=== PATIENT | male | born 1995 | race Caucasian/White ===

== ENCOUNTER 2016-12-07 20:04 | Emergency (ER) | payer OTHER ==
--- NOTE | 2016-12-07 21:46 | DIAGNOSTIC IMAGING REPORT ---
PROCEDURE: CT ABD/PELVIS WITH CONTRAST INDICATION: Nausea, vomiting, diarrhea. Elevated white blood count (20,100). TECHNIQUE: 125 ml of Isovue 300 were injected intravenously and axial images were obtained of the entire abdomen and pelvis with sagittal and coronal reformations. COMPARISON: None. FINDINGS: ABDOMEN: Gallbladder, liver, spleen, pancreas, kidneys, and aorta are normal. Probable small hiatal hernia. Bowel pattern is normal, including appendix (retrocecal location). PELVIS: Pelvic structures are normal. No evidence of free fluid. IMPRESSION: 1. Probable small hiatal hernia. 2. Normal appendix (retrocecal location). 3. Otherwise negative CT abdomen and pelvis. 4. Findings discussed with Dr. Lj Elizabeth. All CT scans at this facility use dose modulation, iterative reconstruction, and/or weight-based dosing when appropriate to reduce radiation dose to as low as reasonably achievable.
--- NOTE | 2016-12-07 23:17 | DIAGNOSTIC IMAGING REPORT ---
PROCEDURE: XR CHEST 2 VIEW INDICATION: CHEST PAIN TECHNIQUE: PA and lateral views. COMPARISON: None. FINDINGS: Lungs are clear, although hyperexpanded. Heart and mediastinum are normal. Thorax is normal. IMPRESSION: 1. Pulmonary hyperexpansion suggests asthma or COPD. 2. Otherwise negative chest.
--- NOTE | 2016-12-08 05:53 | ED ORDER SUMMARY ---
..... Patient: MICHAEL LOFTON OrderSheet [facility] VisitID: [id number] [address] [place] [address] 21y, M Registration Date/Time: 12/07/2016 ORDER SHEET Weight: 72.5 kg Allergies: No Known Drug Allergy GENERAL ORDERS: CBC w Diff Urgent (20:59 12/07/2016 EHassan R.N. verbal order read back to Joyce Rachel) (21:01 EHassan R.N.) CMP Urgent (20:59 12/07/2016 EHassan R.N. verbal order read back to Joyce Rachel) (21:01 EHassan R.N.) UA-Culture if indicated Urgent (20:59 12/07/2016 EHassan R.N. verbal order read back to Joyce Rachel) (Ack 21:10 Ck) (0:18 JQuivey R.N.) PT with INR Urgent (20:59 12/07/2016 EHassan R.N. verbal order read back to Joyce Rachel) (21:01 EHassan R.N.) Amylase Urgent (20:59 12/07/2016 EHassan R.N. verbal order read back to Joyce Rachel) (21:01 EHassan R.N.) Lipase Urgent (20:59 12/07/2016 EHassan R.N. verbal order read back to Joyce Rachel) (21:01 EHassan R.N.) NPO (20:59 12/07/2016 EHassan R.N. verbal order read back to Joyce Rachel) (21:01 EHassan R.N.) Urine Drug Screen Urgent (21:13 12/07/2016 Monet RODRIGUEZ) (Ack 21:54 Ck) (0:18 JQuivey R.N.) CT Abd/Pel w Cont (No) (pending) Urgent (21:14 12/07/2016 Monet RODRIGUEZ) (21:38 EHassan R.N.) PCT (Procalcitonin) Urgent (22:00 12/07/2016 Monet RODRIGUEZ) (Ack 22:11 Ck) (22:15 EHassan R.N.) CRP Urgent (22:00 12/07/2016 Monet RODRIGUEZ) (Ack 22:11 Ck) (22:15 EHassan R.N.) Chest 2V Urgent (22:12 12/07/2016 Monet RODRIGUEZ) (22:29 MCampbell) EKG - ER Stat (22:12 12/07/2016 Monet RODRIGUEZ) (22:21 EHassan R.N.) MEDICATION ORDERS: GI Cocktail WHITE PO 50 mL (NOW) (22:45 12/07/2016 Monet RODRIGUEZ) (Ack 23:05 JQuivey R.N.) (23:08 JQuivey R.N.) Carafate PO 20 ml (NOW) (00:41 12/08/2016 Monet RODRIGUEZ) (Ack 1:20 RMarsden R.N.) (1:46 RMarsden R.N.) IV FLUIDS: IV NS with Normal Saline 1 Liter: initial bolus none -, then 1000 mL/hr for X1 (NOW) (20:58 12/07/2016 Merrill R.N. verbal order read back to Joyce Rachel) (21:02 Merrill R.N.) Morphine IV 4 mg (HIGH ALERT MEDICATION, NOW) (20:58 12/07/2016 Merrill R.N. verbal order read back to Joyce Rachel) (21:02 Merrill R.N.) Zofran IV 4 mg (NOW) (20:58 12/07/2016 Merrill R.N. verbal order read back to Joyce Rachel) (21:02 Merrill R.N.) IV Saline Lock (20:59 12/07/2016 Merrill R.N. verbal order read back to Joyce Rachel) (21:01 Merrill R.N.) Dilaudid IV 1 mg (NOW) (21:14 12/07/2016 Monet RODRIGUEZ) (21:19 Merrill R.N.) Toradol IV 30 mg (NOW) (22:04 12/07/2016 Monet RODRIGUEZ) (22:20 EHassacarmen R.N.) Ativan IV 1 mg (NOW) (22:04 12/07/2016 Monet RODRIGUEZ) (22:21 FANNYassacarmen R.N.) Haldol IV 2 mg (NOW) (00:41 12/08/2016 Monet RODRIGUEZ) (Ack 1:20 RMarsden R.N.) (1:41 RMarsden R.N.) Ativan IV 1 mg (NOW) (00:41 12/08/2016 Monet RODRIGUEZ) (Ack 1:20 RMarsden R.N.) (1:43 RMarsden R.N.) Reglan IV 10 mg (NOW) (00:41 12/08/2016 Monet RODRIGUEZ) (Ack 1:20 RMarsden R.N.) (1:51 RMarsden R.N.) Protonix IVP 80mg 80 mg (Mix in NS 20ml over 4min) (00:42 12/08/2016 Monet RODRIGUEZ) (Ack 1:20 RMarsden R.N.) (1:59 RMarsden R.N.) ORDER SHEET NOTES: [Electronically signed by Jade Ahumada R.N. (06:38 12/08/2016)] [Electronically signed by Lj Elizabeth MD (12:51 12/09/2016)] [Electronically locked/signed by Jade Ahumada R.N. (06:38 12/08/2016)]
--- NOTE | 2016-12-08 05:53 | ED CLINICAL REPORT ---
Clinical Report - Physicians/Mid Levels [facility] [address] [place] [address] 12/07/2016 20:06 Patient: MICHAEL LOFTON Time Seen: 21:08 Dec 07 2016. Arrived- By private vehicle. Historian- patient. CPT: ER phys charges level 4 (#[id number]). HISTORY OF PRESENT ILLNESS Chief Complaint: ABDOMINAL PAIN and VOMITING, DIARRHEA and NAUSEA. At its maximum, severity described as severe. When seen in the E.D., severity described as severe. Modifying factors- worsened by movement and food. Not relieved by anything. (( Pt states being diagnosed with hiatal hernia 2 years ago and has not seen or addressed the problem, has gone to walk in clinics who have placed him on Nexium. This last abdominal pain episode initiated last night, pt has vomited all day light brown clear liquid, denies seeing blood in vomit. Pt denies having fevers, chills, cough. Pt is here due to "severe pain"). Onset. (2 years). ( Pt states). He has had nausea, vomiting, diarrhea and abdominal pain. No constipation or fever. Last oral intake by patient was yesterday.). Is still present. It is described as "pain" and it is described as located in the epigastric area. The patient has had nausea, loss of appetite, vomiting and diarrhea. No recent travel. Similar symptoms previously: Several times (for 2 years [employer]). Recent medical care: Not recently seen/assessed. REVIEW OF SYSTEMS No constipation, black stools, hematemesis, difficulty with urination or pain with urination. No urinary frequency, bloody stools, fever, sore throat or chest pain. No difficulty breathing, cough, joint pain, skin rash or chills. No back pain. Due to see ceramic engineering professor for this. All systems otherwise negative, except as recorded above. PAST HISTORY See nurses notes. Abdominal pain syndrome. SOCIAL HISTORY Heavy tobacco smoker (cigarette)- less than 1 pack per day. History of drug use: marijuana. ADDITIONAL NOTES The nursing notes have been reviewed. PHYSICAL EXAM Vital Signs: 12/07/2016 20:29 BP: 140/85. HR: 75. RR: 20. O2 saturation: 100%. Temp: 98.8 F. Pain level now: 05/03. Appearance: Alert. Appears to be in pain. Patient in moderate distress. (Will not sit still for exam. Histrionic appearing.). Eyes: Eyes normal inspection. ENT: Pharynx normal. Neck: Normal inspection. CVS: Normal heart rate and rhythm. Heart sounds normal. Pulses normal. Respiratory: No respiratory distress. Breath sounds normal. Chest nontender. Abdomen: Soft. Moderate tenderness in the epigastric area and periumbilical area. Bowel sounds normal. No mass. Back: Normal inspection. Skin: Skin warm. Normal skin color. No rash. Extremities: Extremities exhibit normal ROM. No lower extremity edema. Neuro: Oriented X 3. No motor deficit. No sensory deficit. LABS, X-RAYS, AND EKG EKG: Normal EKG. Abdominal CT: Normal liver and gallbladder. Appendix normal. No mass. No free fluid. No bony lesion. Minimal sign of hiatal hernia. Abdominal CT performed with IV contrast. The study was interpreted by the radiologist and discussed with the radiologist. Laboratory Tests: UA-Culture if indicated: (THAIS: 12/08/2016 00:18) ( MsgRcvd 12/08/2016 00:42) Final results Test Result Flag Units (Reference) URINE COLOR YELLOW URINE APPEARANCE CLEAR URINE GLUCOSE NEGATIVE (NEGATIVE) URINE BILIRUBIN NEGATIVE (NEGATIVE) URINE KETONE 1+ (NEGATIVE) URINE SPECIFIC GRAVITY 1.010 (1.010-1.030) URINE PH >= 9.0 H (5.0-8.0) URINE PROTEIN NEGATIVE (NEGATIVE) URINE UROBILINOGEN 0.2 EU/dL (0.2-1.0) URINE NITRITE NEGATIVE (NEGATIVE) URINE BLOOD NEGATIVE (NEGATIVE) URINE LEUK ESTERASE NEGATIVE (NEGATIVE) URINE RBC 0-1 rbc/hpf (0-1) URINE WBC 0-1 wbc/hpf (0-1) URINE EPITHELIAL CELLS 0-1 EPI/hpf (0-5) URINE BACTERIA NONE SEEN (NONE SEEN) URINE COMMENT CULT NOT INDICATED URINE CULTURES ARE SET-UP BASED ON THE FOLLOWING CRITERIA:POSITIVE NITRITEPOSITIVE LEUKOCYTE ESTERASEGREATER THAN 10 WHITE BLOOD CELLSMODERATE (2+) OR GREATER BACTERIA CBC w Diff: (THAIS: 12/07/2016 20:45) ( [facility] 12/07/2016 21:11) Final results Test Result Flag Units (Reference) WHITE BLOOD COUNT 22.1 H K/uL (4.5-11.5) RED BLOOD COUNT 5.33 M/uL (4.50-5.90) HEMOGLOBIN 16.4 gm/dL (13.5-17.5) HEMATOCRIT 49.2 % (41.0-53.0) MEAN CELL VOLUME 92 fL (80-100) MEAN CORPUSCULAR HGB 31 pg (26-34) MEAN CORPUSCULAR HGB CONC 33 g/dL (31-37) RED CELL DISTRIBUTION WIDTH 13.1 % (11.6-14.8) PLATELET COUNT 425 H K/uL (150-400) NEUTROPHIL % 88.1 H % (50-75) LYMPH % 7.5 L % (25-40) MONO % 4.3 % (3-14) EOSINOPHIL % 0 % (0-4) BASOPHIL % 0.1 % (0-2) PT with INR: (THAIS: 12/07/2016 20:45) ( [facility] 12/07/2016 21:15) Final results Test Result Flag Units (Reference) INR 0.9 (0.8-1.2) Low Intensity Therapy: INR 1.5-2.0 PT range 18.5-23.1Mod.Intensity Therapy: INR 2.0-3.0 PT range 23.1-31.5High Intensity Therapy: INR 2.5-3.5 PT range 27.4-35.5High Intensity Therapy 2: INR 3.0-4.0 PT range 31.5-39.3 [id number]: (THAIS: 12/07/2016 21:13) ( [facility] 12/08/2016 01:17) Final results Test Result Flag Units (Reference) URINE DRUG SCREEN POSITIVE,Unconfirmed DRUGS DETECTED: Opiates The urine drug screen is a qualitative screening test fordrug overdose and abuse. All screen results should beconsidered as presumptive.Drugs screened for are as follows:BenzodiazepinesCocaineAmphetamines/MetamphetaminesTHC (Tetrahydrocannabinol)OpiatesBarbituratesTCA (Tricyclic Antidepressants)MethadonePositive results are unconfirmed. For confirmation, notifythe lab for the specimen to be sent to the reference lab.All confirmations must be performed by a differentmethodology.The ingestion of natural herbal and plant productscontaining Ephedra/Ephedra metabolites can produce in urineone or more substances capable of cross reacting withamphetamine/methamphetamine immunoassays. This testprovides a preliminary result only. A more specificalternative chemical method must be used to obtain aconfirmed analytical result. [id number]: (THAIS: 12/07/2016 20:45) ( MsgRcvd 12/07/2016 23:14) Final results Test Result Flag Units (Reference) C-REACTIVE PROTEIN < 0.2 mg/dL (0.0-0.9) [id number]: (THAIS: 12/07/2016 20:45) ( MsgRcvd 12/07/2016 22:40) Final results Test Result Flag Units (Reference) PROCALCITONIN < 0.05 ng/mL (0-0.5) PCT Concentration: Interpretation : Risk/option for action PCT <=0.5 ng/mL : Systemic : Low risk forinfection(sepsis): progression to severeis not likely. : systemic infection.Local bacterial : CAUTION-PCT levelsinfection is : below 0.5 ng/mL do notpossible. : exclude an infection,because localizedinfections (withoutsystemic signs) may beassociated with suchlow levels. If PCT ismeasured very earlyafter a bacterialchallenge (usually <6hours), these valuesmay still be low. Inthis case PCT shouldbe re-assessed 6-24hours later. PCT >0.5 and : Systemic infection: Moderate risk for<= 2 ng/mL : (sepsis) is : progression to severepossible, but : systemic infection.other conditions : The patient should beare known to : closely monitoredelevate PCT. : both clinically andby re-assessing PCTwithin 6-24 hours. PCT > 2 ng/mL : Systemic infection: High risk for(sepsis) is likely: progression to severeunless other : systemic infection.causes are known. : PCT >= 10 ng/mL : Important systemic: High likelihood ofinflammatory : severe sepsis orresponse, almost : septic shock.exclusively due to:severe bacterial :sepsis or septic :shock. : CMP: (THAIS: 12/07/2016 20:45) ( MsgRcvd 12/07/2016 21:17) Final results Test Result Flag Units (Reference) GLUCOSE 144 H mg/dL (70-110) BUN 11 mg/dL (7-18) CREATININE 1.5 H mg/dL (0.6-1.3) Estimated GFR >60 mL/min Estimated GFR- >60 mL/min Note: Persistent reduction over 3 months in eGFR<60 mL/min/1.73 m2 defines CKD. Patients with eGFR values>=60 mL/min/1.73 m2 may also have CKD if evidence ofpersistent proteinuria. Additional information may be foundat www.kidney.org. SODIUM 140 mmol/L (136-145) POTASSIUM 3.8 mmol/L (3.5-5.1) CHLORIDE 103 mmol/L (98-107) CARBON DIOXIDE 21 mmol/L (21-32) CALCIUM 9.7 mg/dL (8.5-10.1) TOTAL PROTEIN 8.5 H g/dL (6.4-8.2) ALBUMIN 4.8 g/dL (3.3-5.0) BILIRUBIN, TOTAL 0.5 mg/dL (0.0-1.0) ALKALINE PHOSPHATASE 85 U/L (46-116) AST (SGOT) 18 U/L (15-37) ALT (SGPT) 31 U/L (12-78) LIPASE 121 U/L (73-393) AMYLASE 39 U/L (25-115) . PROGRESS AND PROCEDURES Course of Care: 00:42 12/08/16. Pt has recurrent intractable vomiting at this point. He notes the GI cocktail resolved his pain for 10 minutes but then it came back. Haldol 2 mg IV Ativan 1 mg Iv reglan 10 mg IV Carafate 20 ml Pt much better but now slightly somnolent and unable to get up and ambulate. Pt observed until able to ambulate. Pt may have cyclic vomiting syndrome. He has a GI appointment coming up. Haldol and ativan worked well to stop the syndrome. No abdominal pathology found on work-up. Patient/family counseled. Disposition: Discharged. Condition: stable and improved. CLINICAL IMPRESSION Acute esophagitis associated with gastro-esophageal reflux disease (GERD) (with esophageal spasm.). INSTRUCTIONS No strenuous activity. Take clear liquids only (frequent sips) until better. Advance diet as tolerated. Avoid alcohol and NSAIDS. Examples of NSAIDS include aspirin, ibuprofen (Advil) and naproxen (Aleve). Avoid spicy foods. Other diet: no caffeine. Warnings: Further evaluation is necessary. GENERAL WARNINGS: Return or contact your physician immediately if your condition worsens or changes unexpectedly, if not improving as expected, or if other problems arise. Your Current Medications: STOP TAKING THE FOLLOWING MEDICATIONS: NexIUM Oral. Prescription Medications: Zofran (orally disintegrating tablets) 4 mg: take 1 orally every 6 hours as needed for nausea. Dispense five (5). No refill. Carafate 1 gm tablets: take 1 orally four times daily (1 hour before meals and at bedtime). Dispense sixty (60). No refills. Substitution is permissible. Prilosec 40 mg capsules: take 1 capsule orally every day for 10 days. Dispense ten (10). No refill. Oxycodone/APAP 5 mg/325 mg: take 1-2 tablets orally every 6 hours as needed for pain. Dispense ten (10). No refill. Follow-up: Follow up with a ceramic engineering professor in one week as scheduled. Understanding of the discharge instructions verbalized by patient and parent. Follow-up with: [facility], , , [address], [facility], [id number] Follow up Tuesday in two days. Call for an appointment. (Electronically signed by Lj Elizabeth MD 12/09/2016 12:51)
--- NOTE | 2016-12-08 05:53 | ED CLINICAL REPORT ---
Clinical Report - Physicians/Mid Levels [facility] [address] [place] [address] 12/07/2016 20:06 Patient: MICHAEL LOFTON Time Seen: 21:08 Dec 07 2016. Arrived- By private vehicle. Historian- patient. CPT: ER phys charges level 4 (#[id number]). HISTORY OF PRESENT ILLNESS Chief Complaint: ABDOMINAL PAIN and VOMITING, DIARRHEA and NAUSEA. At its maximum, severity described as severe. When seen in the E.D., severity described as severe. Modifying factors- worsened by movement and food. Not relieved by anything. (( Pt states being diagnosed with hiatal hernia 2 years ago and has not seen or addressed the problem, has gone to walk in clinics who have placed him on Nexium. This last abdominal pain episode initiated last night, pt has vomited all day light brown clear liquid, denies seeing blood in vomit. Pt denies having fevers, chills, cough. Pt is here due to "severe pain"). Onset. (2 years). ( Pt states). He has had nausea, vomiting, diarrhea and abdominal pain. No constipation or fever. Last oral intake by patient was yesterday.). Is still present. It is described as "pain" and it is described as located in the epigastric area. The patient has had nausea, loss of appetite, vomiting and diarrhea. No recent travel. 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 Recent medical care: Not recently seen/assessed. REVIEW OF SYSTEMS No constipation, black stools, hematemesis, difficulty with urination or pain with urination. No urinary frequency, bloody stools, fever, sore throat or chest pain. No difficulty breathing, cough, joint pain, skin rash or chills. No back pain. Due to see senior systems developer for this. All systems otherwise negative, except as recorded above. PAST HISTORY See nurses notes. Abdominal pain syndrome. SOCIAL HISTORY Heavy tobacco smoker (cigarette)- less than 1 pack per day. History of drug use: marijuana. ADDITIONAL NOTES The nursing notes have been reviewed. PHYSICAL EXAM Vital Signs: 12/07/2016 20:29 BP: 140/85. HR: 75. RR: 20. O2 saturation: 100%. Temp: 98.8 F. Pain level now: 05/03. Appearance: Alert. Appears to be in pain. Patient in moderate distress. (Will not sit still for exam. Histrionic appearing.). Eyes: Eyes normal inspection. ENT: Pharynx normal. Neck: Normal inspection. CVS: Normal heart rate and rhythm. Heart sounds normal. Pulses normal. Respiratory: No respiratory distress. Breath sounds normal. Chest nontender. Abdomen: Soft. Moderate tenderness in the epigastric area and periumbilical area. Bowel sounds normal. No mass. Back: Normal inspection. Skin: Skin warm. Normal skin color. No rash. Extremities: Extremities exhibit normal ROM. No lower extremity edema. Neuro: Oriented X 3. No motor deficit. No sensory deficit. LABS, X-RAYS, AND EKG EKG: Normal EKG. Abdominal CT: Normal liver and gallbladder. Appendix normal. No mass. No free fluid. No bony lesion. Minimal sign of hiatal hernia. Abdominal CT performed with IV contrast. The study was interpreted by the radiologist and discussed with the radiologist. Laboratory Tests: UA-Culture if indicated: (THAIS: 12/08/2016 00:18) ( MsgRcvd 12/08/2016 00:42) Final results Test Result Flag Units (Reference) URINE COLOR YELLOW URINE APPEARANCE CLEAR URINE GLUCOSE NEGATIVE (NEGATIVE) URINE BILIRUBIN NEGATIVE (NEGATIVE) URINE KETONE 1+ (NEGATIVE) URINE SPECIFIC GRAVITY 1.010 (1.010-1.030) URINE PH >= 9.0 H (5.0-8.0) URINE PROTEIN NEGATIVE (NEGATIVE) URINE UROBILINOGEN 0.2 EU/dL (0.2-1.0) URINE NITRITE NEGATIVE (NEGATIVE) URINE BLOOD NEGATIVE (NEGATIVE) URINE LEUK ESTERASE NEGATIVE (NEGATIVE) URINE RBC 0-1 rbc/hpf (0-1) URINE WBC 0-1 wbc/hpf (0-1) URINE EPITHELIAL CELLS 0-1 EPI/hpf (0-5) URINE BACTERIA NONE SEEN (NONE SEEN) URINE COMMENT CULT NOT INDICATED URINE CULTURES ARE SET-UP BASED ON THE FOLLOWING CRITERIA:POSITIVE NITRITEPOSITIVE LEUKOCYTE ESTERASEGREATER THAN 10 WHITE BLOOD CELLSMODERATE (2+) OR GREATER BACTERIA CBC w Diff: (THAIS: 12/07/2016 20:45) ( [facility] 12/07/2016 21:11) Final results Test Result Flag Units (Reference) WHITE BLOOD COUNT 22.1 H K/uL (4.5-11.5) RED BLOOD COUNT 5.33 M/uL (4.50-5.90) HEMOGLOBIN 16.4 gm/dL (13.5-17.5) HEMATOCRIT 49.2 % (41.0-53.0) MEAN CELL VOLUME 92 fL (80-100) MEAN CORPUSCULAR HGB 31 pg (26-34) MEAN CORPUSCULAR HGB CONC 33 g/dL (31-37) RED CELL DISTRIBUTION WIDTH 13.1 % (11.6-14.8) PLATELET COUNT 425 H K/uL (150-400) NEUTROPHIL % 88.1 H % (50-75) LYMPH % 7.5 L % (25-40) MONO % 4.3 % (3-14) EOSINOPHIL % 0 % (0-4) BASOPHIL % 0.1 % (0-2) PT with INR: (THAIS: 12/07/2016 20:45) ( [facility] 12/07/2016 21:15) Final results Test Result Flag Units (Reference) INR 0.9 (0.8-1.2) Low Intensity Therapy: INR 1.5-2.0 PT range 18.5-23.1Mod.Intensity Therapy: INR 2.0-3.0 PT range 23.1-31.5High Intensity Therapy: INR 2.5-3.5 PT range 27.4-35.5High Intensity Therapy 2: INR 3.0-4.0 PT range 31.5-39.3 [id number]: (THAIS: 12/07/2016 21:13) ( [facility] 12/08/2016 01:17) Final results Test Result Flag Units (Reference) URINE DRUG SCREEN POSITIVE,Unconfirmed DRUGS DETECTED: Opiates The urine drug screen is a qualitative screening test fordrug overdose and abuse. All screen results should beconsidered as presumptive.Drugs screened for are as follows:BenzodiazepinesCocaineAmphetamines/MetamphetaminesTHC (Tetrahydrocannabinol)OpiatesBarbituratesTCA (Tricyclic Antidepressants)MethadonePositive results are unconfirmed. For confirmation, notifythe lab for the specimen to be sent to the reference lab.All confirmations must be performed by a differentmethodology.The ingestion of natural herbal and plant productscontaining Ephedra/Ephedra metabolites can produce in urineone or more substances capable of cross reacting withamphetamine/methamphetamine immunoassays. This testprovides a preliminary result only. A more specificalternative chemical method must be used to obtain aconfirmed analytical result. [id number]: (THAIS: 12/07/2016 20:45) ( MsgRcvd 12/07/2016 23:14) Final results Test Result Flag Units (Reference) C-REACTIVE PROTEIN < 0.2 mg/dL (0.0-0.9) [id number]: (THAIS: 12/07/2016 20:45) ( MsgRcvd 12/07/2016 22:40) Final results Test Result Flag Units (Reference) PROCALCITONIN < 0.05 ng/mL (0-0.5) PCT Concentration: Interpretation : Risk/option for action PCT <=0.5 ng/mL : Systemic : Low risk forinfection(sepsis): progression to severeis not likely. : systemic infection.Local bacterial : CAUTION-PCT levelsinfection is : below 0.5 ng/mL do notpossible. : exclude an infection,because localizedinfections (withoutsystemic signs) may beassociated with suchlow levels. If PCT ismeasured very earlyafter a bacterialchallenge (usually <6hours), these valuesmay still be low. Inthis case PCT shouldbe re-assessed 6-24hours later. PCT >0.5 and : Systemic infection: Moderate risk for<= 2 ng/mL : (sepsis) is : progression to severepossible, but : systemic infection.other conditions : The patient should beare known to : closely monitoredelevate PCT. : both clinically andby re-assessing PCTwithin 6-24 hours. PCT > 2 ng/mL : Systemic infection: High risk for(sepsis) is likely: progression to severeunless other : systemic infection.causes are known. : PCT >= 10 ng/mL : Important systemic: High likelihood ofinflammatory : severe sepsis orresponse, almost : septic shock.exclusively due to:severe bacterial :sepsis or septic :shock. : CMP: (THAIS: 12/07/2016 20:45) ( MsgRcvd 12/07/2016 21:17) Final results Test Result Flag Units (Reference) GLUCOSE 144 H mg/dL (70-110) BUN 11 mg/dL (7-18) CREATININE 1.5 H mg/dL (0.6-1.3) Estimated GFR >60 mL/min Estimated GFR- >60 mL/min Note: Persistent reduction over 3 months in eGFR<60 mL/min/1.73 m2 defines CKD. Patients with eGFR values>=60 mL/min/1.73 m2 may also have CKD if evidence ofpersistent proteinuria. Additional information may be foundat [email or web address].org. SODIUM 140 mmol/L (136-145) POTASSIUM 3.8 mmol/L (3.5-5.1) CHLORIDE 103 mmol/L (98-107) CARBON DIOXIDE 21 mmol/L (21-32) CALCIUM 9.7 mg/dL (8.5-10.1) TOTAL PROTEIN 8.5 H g/dL (6.4-8.2) ALBUMIN 4.8 g/dL (3.3-5.0) BILIRUBIN, TOTAL 0.5 mg/dL (0.0-1.0) ALKALINE PHOSPHATASE 85 U/L (46-116) AST (SGOT) 18 U/L (15-37) ALT (SGPT) 31 U/L (12-78) LIPASE 121 U/L (73-393) AMYLASE 39 U/L (25-115) . PROGRESS AND PROCEDURES Course of Care: 00:42 12/08/16. Pt has recurrent intractable vomiting at this point. He notes the GI cocktail resolved his pain for 10 minutes but then it came back. Haldol 2 mg IV Ativan 1 mg Iv reglan 10 mg IV Carafate 20 ml Pt much better but now slightly somnolent and unable to get up and ambulate. Pt observed until able to ambulate. Pt may have cyclic vomiting syndrome. He has a GI appointment coming up. Haldol and ativan worked well to stop the syndrome. No abdominal pathology found on work-up. Patient/family counseled. Disposition: Discharged. Condition: stable and improved. CLINICAL IMPRESSION Acute esophagitis associated with gastro-esophageal reflux disease (GERD) (with esophageal spasm.). INSTRUCTIONS No strenuous activity. Take clear liquids only (frequent sips) until better. Advance diet as tolerated. Avoid alcohol and NSAIDS. Examples of NSAIDS include aspirin, ibuprofen (Advil) and naproxen (Aleve). Avoid spicy foods. Other diet: no caffeine. Warnings: Further evaluation is necessary. GENERAL WARNINGS: Return or contact your physician immediately if your condition worsens or changes unexpectedly, if not improving as expected, or if other problems arise. Your Current Medications: STOP TAKING THE FOLLOWING MEDICATIONS: NexIUM Oral. Prescription Medications: Zofran (orally disintegrating tablets) 4 mg: take 1 orally every 6 hours as needed for nausea. Dispense five (5). No refill. Carafate 1 gm tablets: take 1 orally four times daily (1 hour before meals and at bedtime). Dispense sixty (60). No refills. Substitution is permissible. Prilosec 40 mg capsules: take 1 capsule orally every day for 10 days. Dispense ten (10). No refill. Oxycodone/APAP 5 mg/325 mg: take 1-2 tablets orally every 6 hours as needed for pain. Dispense ten (10). No refill. Follow-up: Follow up with a senior systems developer in one week as scheduled. Understanding of the discharge instructions verbalized by patient and parent. Follow-up with: [facility], , , [address], [facility] [place], [address] Follow up Tuesday in two days. Call for an appointment. (Electronically signed by Lj Elizabeth MD 12/09/2016 12:51)
--- NOTE | 2016-12-08 05:53 | ED NURSING NOTES ---
Clinical Report - Nurses [facility] [address] [place] [address] 12/07/2016 20:06 Patient: MICHAEL LOFTON TRIAGE Triage time 2034 PM. Acuity: LEVEL 3. Chief Complaint: ABDOMINAL PAIN, NAUSEA, VOMITING and DIARRHEA. Alert. No acute distress. SEPSIS SCREEN: Sepsis Screen. Negative (no infection suspected/documented). --20:53 Yael Baxter R.N. 20:29 12/07/16. BP: 140/85. HR: 75. RR: 20. O2 saturation: 100% on room air. Temp: 98.8 F (oral). Pain level now: 05/03. --20:53 Yael Baxter R.N. Weight: 72.5 kg. Height/Length: 66 inches. BMI: 25.8. --20:29 Yael Baxter R.N. Medications NexIUM Oral. --20:43 Yael Baxter R.N. Medication/allergy information source: the patient. --20:53 Yael Baxter R.N. Allergies No Known Drug Allergy. --22:04 Yael Baxter R.N. History Arrived by private vehicle. Historian: patient. Accompanied by family. ( Pt states being diagnosed with hiatal hernia 2 years ago and has not seen or addressed the problem, has gone to walk in clinics who have placed him on Nexium. This last abdominal pain episode initiated last night, pt has vomited all day light brown clear liquid, denies seeing blood in vomit. Pt denies having fevers, chills, cough. Pt is here due to "severe pain"). Onset. (2 years). ( Pt states). He has had nausea, vomiting, diarrhea and abdominal pain. No constipation or fever. Last oral intake by patient was yesterday. Treatment PRICING ASSOCIATE: Took Tylenol and ibuprofen. (nexium). PAST MEDICAL HX: Gastroesophageal reflux disease. Immunizations: up-to-date. SOCIAL HX: Heavy tobacco smoker- less than 1 pack per day. History of drug use: marijuana. Recently used drugs today. No alcohol use. No recent travel. No infectious disease exposure. No known contact with a sick individual. ABUSE ASSESSMENT: No report of abuse. SELF HARM ASSESSMENT: A self harm assessment was performed. The patient answered "no" to the question "Do you have thoughts of harming or killing yourself?" and "Have you recently had thoughts about harming or killing others?". FALL RISK ASSESSMENT: Fall risk assessment completed. No fall risk identified. NUTRITIONAL RISK ASSESSMENT: The nutritional risk assessment revealed no deficiencies. FUNCTIONAL ASSESSMENT: Functional assessment: no impairments noted. LEARNING NEEDS ASSESSMENT: The learning needs assessment revealed no barriers. SKIN INTEGRITY ASSESSMENT: Skin integrity risk assessment completed. No skin integrity risk identified. --20:53 Yael Baxter R.N. ADDITIONAL SURGERIES: no known surgeries. Interventions ID band on patient. --20:53 Yael Baxter R.N. PHYSICAL ASSESSMENT Ambulatory to room. GENERAL / NEURO / PSYCH: Alert. Oriented X 4. Appears in pain, anxious and in distress. HEENT: Mucous membranes are pink. RESPIRATORY: Respirations not labored. Breath sounds within normal limits. CVS: Capillary refill less than 2 seconds. GI / : The patient has had nausea. Rebound tenderness. Guarding present. Diminished bowel sounds in all quadrants. No abdominal distention or diarrhea. No blood in the stool. SKIN: Skin is warm and dry. --21:08 Yael Baxter R.N. NURSING PROGRESS NOTES 21:12/07/2016 Site #1 started via IV in the right antecubital space with an 20g angiocath. Blood drawn: rainbow set. Labeled in the presence of the patient and sent to the lab. --21: Yael Baxter R.N. 21:12/07/2016 Started bag #1 1000 mL IV Fluids IV NS (Saline); at 1000 mL/hr over 1 hour(s) via site #1 via IV pump. Allergies verified and confirmed 5 rights. IV patency established. IV site checked: no pain, redness, or swelling. IV flushed thoroughly pre- and post-medication administration. --21:02 Yael Baxter R.N. 21:12/07/2016 Morphine IVP 4 mg given over 1 minute(s) via site #1. Allergies verified, confirmed 5 rights and sedative warning given to the patient and patient's family. IV patency established. IV site checked: no pain, redness, or swelling. IV flushed thoroughly pre- and post-medication administration. IVP given by RN. --21:02 Yael Baxter R.N. 21:12/07/2016 Zofran (Ondansetron HCl) IVP 4 mg given over 2 minute(s) via site #1. Allergies verified and confirmed 5 rights. IV patency established. IV site checked: no pain, redness, or swelling. IV flushed thoroughly pre- and post-medication administration. IVP given by RN. --21:02 Yael Baxter R.N. The initial plan of care for this patient has been created This plan of care was discussed with the patient. Patient ID band checked for patient name and birthdate: patient confirmed. Blood samples drawn from the right antecubital space by nurse per protocol ; labeled in presence of the patient and sent to lab: rainbow set. Patient gowned. Warming measures: blanket applied. Reassurance given. Two patient identifiers checked. Call light placed in reach. Side rails up x 1. Bed placed in lowest position. --21:06 Yael Baxter R.N. ( Family at bedside an updated, pt told to be NPO, IV fluids given with meds as ordered. MD Treviño aware, will monitor). GI / : The patient reports nausea. The patient reports vomiting. The patient reports abdominal pain. Denies diarrhea. Abdomen soft. Abdominal tenderness. Bowel sounds within normal limits. No abdominal distention. --21:07 Yael Baxter R.N. :12/07/2016 Dilaudid (HYDROmorphone HCl PF) IVP 1 mg given over 30 second(s) via site #1. Allergies verified, confirmed 5 rights and sedative warning given to the patient and patient's family. IV patency established. IV site checked: no pain, redness, or swelling. IV flushed thoroughly pre- and post-medication administration. IVP given by RN. --: Yael Baxter R.N. Patient transported to [place]. (2121 PM). --: Baxter, Yael, R.N. Pulse oximeter and NIBP monitor placed on patient; monitor alarms on. --21:22 Yael Baxter R.N. 21:41 12/07/2016 IV Fluids IV NS Discontinued: bag #1 infused. Total amount infused: 1000 mL. --21:41 Mehdi Carlos R.N. Reassurance given. Reassessment after oxygen administered. He is resting quietly. GI / : The patient reports abdominal pain. Denies nausea or vomiting. Patient returned from CT. (2150 PM). Call light placed in reach. --21:59 Yael Baxter R.N. 21:56 12/07/16. BP: 140/76 (regular adult cuff) taken on the left arm, via an automated monitor, while lying. HR: 74. RR: 18. O2 saturation: 98% on room air. Temp: 98.8 F (oral). Pain level now: 9/10. --21:59 Yael Baxter R.N. 21:56 12/07/2016 Morphine IVP Response: no adverse reaction symptoms are the same. The patient feels the same. --22:21 Yael Baxter R.N. 22:12/07/2016 Zofran IVP Response: no adverse reaction pain is improving. Symptoms have improved the patient feels the same. --22:20 Yael Baxter R.N. 22:12/07/2016 Dilaudid IVP Response: no adverse reaction pain is improving. Symptoms are the same. The patient feels the same. --22:20 Yael Baxter R.N. 22:20 12/07/2016 Toradol IVP 30 mg given over 30 second(s) via site #1. Allergies verified and confirmed 5 rights. IV patency established. IV site checked: no pain, redness, or swelling. IV flushed thoroughly pre- and post-medication administration. IVP given by RN. --22:20 Yael Baxter R.N. 22:21 12/07/2016 Ativan (LORazepam) IVP 1 mg given over 30 second(s) via site #1. Allergies verified, confirmed 5 rights and sedative warning given to the patient and patient's family. IV patency established. IV site checked: no pain, redness, or swelling. IV flushed thoroughly pre- and post-medication administration. IVP given by RN. --22:21 Yael Baxter R.N. Patient transported to radiology. (2222 PM). --22:22 Yael Baxter R.N. Care transferred and report given (CALEB Hansen). --22:36 Yael Baxter R.N. EKG time: (2224 PM). EKG was ordered, performed by a tech and shown to the ED physician. --22:42 Romana Mena 23:06 12/07/2016 GI COCKTAIL WHITE (Simethicone) PO 50 mL given. Allergies verified and confirmed 5 rights. --23:08 Mehdi Carlos RJuan Jose 23:08 Patient reminded of the need for a urine sample - urinal placed on bedrail. --23:14 Mehdi Carlos R.N. Patient ID band checked for patient name and birthdate: patient confirmed. Clean catch urine collected with return of yellow-colored clear urine; sample sent to lab for urinalysis and drug screen. Specimen labeled in the presence of the patient. Patient and family informed about reason for wait and about plan of care. --00:20 Jade Ahumada R.N. 00:22 12/08/16. BP: 138/88. HR: 98. RR: 24. O2 saturation: 100%. Pain level now: 7/10. --00:23 Jade Ahumada R.N. 01:31 12/08/2016 Carafate (Sucralfate) PO Oral Suspension 2 gm given. Allergies verified and confirmed 5 rights. --01:46 Jade Ahumada R.N. 01:41 12/08/2016 HALDOL (Haloperidol Lactate) IVP 2 mg given over 3 minute(s) via site #1. Allergies verified, confirmed 5 rights and sedative warning given to the patient. IV patency established. IV site checked: no pain, redness, or swelling. IV flushed thoroughly pre- and post-medication administration. IVP given by RN. --01:41 Jade Ahumada R.N. 01:43 12/08/2016 Ativan (LORazepam) IVP 1 mg given over 2 minute(s) via site #1. Allergies verified, confirmed 5 rights and sedative warning given to the patient. IV patency established. IV site checked: no pain, redness, or swelling. IV flushed thoroughly pre- and post-medication administration. IVP given by RN. --01:43 Jade Ahumada R.N. 01:48 12/08/2016 Reglan (Metoclopramide HCl) IVP 10 mg given over 2 minute(s) via site #1. Allergies verified and confirmed 5 rights. IV patency established. IV site checked: no pain, redness, or swelling. IV flushed thoroughly pre- and post-medication administration. IVP given by RN. --01:51 Jade Ahumada R.N. 01:51 12/08/2016 Carafate PO Response: no adverse reaction. --02:06 Jade Ahumada R.N. 01:59 12/08/2016 PROTONIX (Pantoprazole Sodium) IVP 80 mg given over 7 minute(s) via site #1. Allergies verified and confirmed 5 rights. IV patency established. IV site checked: no pain, redness, or swelling. IV flushed thoroughly pre- and post-medication administration. IVP given by RN. --01:59 Jade Ahumada R.N. 02:05 12/08/2016 HALDOL IVP Response: no adverse reaction symptoms have improved the patient feels better. ED physician notified (Patient placed on 2L O2. O2 sat went up to 98% on 2L). 12/08/2016 02:00 BP: 137/77. HR: 68. RR: 20. O2 saturation: 90%. FLACC pain scale: 0/10. --02:06 Jade Ahumada R.NRebecca 02:06 12/08/2016 Ativan IVP Response: no adverse reaction symptoms have improved. ED physician notified (see response note from Ativan). 12/08/2016 02:00 BP: 137/77. HR: 68. RR: 20. O2 saturation: 90%. FLACC pain scale: 0/10. --02:06 Jade Ahumada R.N. Reassessment after oxygen administered and medication administered. He is calm and sleeping and has had no adverse reaction. --02:39 Jade Ahumada R.N. The patient is sleeping. --03:35 Jade Ahumada R.N. 02:30 12/08/2016 Reglan IVP Response: no adverse reaction. 12/08/2016 02:30 BP: 138/77. HR: 85. RR: 17. O2 saturation: 96%. FLACC pain scale: 0/10. --03:38 Jade Ahumada R.N. 02:30 12/08/2016 PROTONIX IVP Response: no adverse reaction. 12/08/2016 02:30 BP: 138/77. HR: 85. RR: 17. O2 saturation: 96%. FLACC pain scale: 0/10. --03:38 Jade Ahumada R.N. The patient is sleeping. ( Patient's mother provided with coffee). --04:32 Jade Ahumada R.N. 03:45 12/08/16. BP: 113/74. HR: 67. RR: 17. O2 saturation: 95%. FLACC pain scale: 0/10. --04:56 Jade Ahumada R.N. 04:15 12/08/16. BP: 105/69. HR: 75. RR: 17. O2 saturation: 94%. FLACC pain scale: 0/10. --04:57 Jade Ahumada R.N. The patient is sleeping. --05:40 Jade Ahumada R.N. ( Patient easily woken up. He is able to stand and move. Patient reports 7/10 pain. ED physician notified.). --05:50 Jade Ahumada R.N. DISPOSITION / DISCHARGE 06:09 12/08/16. No learning barriers present. Discharge instructions provided and reviewed with the patient and parent. Reviewed warnings. Reviewed medication(s). Treatments reviewed. Reviewed referrals. Reviewed diet. Activity restrictions reviewed. Patient and parent verbalized understanding. Written instructions provided in [place]. The patient was discharged home and accompanied by parent. He left the Emergency Department ambulatory and via private vehicle. Parent driving. --06:09 Jade Ahumada R.N. 06:08 12/08/16. BP: 103/57. HR: 85. RR: 18. O2 saturation: 95%. Temp: deferred. Pain level now: 01/31. --06:09 Jade Ahumada R.N. Locked/Released at 12/08/2016 6:38 by Jade Ahumada R.N.
--- NOTE | 2016-12-09 12:51 | ED DISCHARGE INSTRUCTIONS ---
Patient: MICHAEL LOFTON General Instructions [facility] VisitID: [id number] [address] [place] [address] 21y, M Registration Date/Time: 12/07/2016 Acute esophagitis associated with gastro-esophageal reflux disease (GERD) (with esophageal spasm.). INSTRUCTIONS No strenuous activity. Take clear liquids only (frequent sips) until better. Advance diet as tolerated. Avoid alcohol and NSAIDS. Examples of NSAIDS include aspirin, ibuprofen (Advil) and naproxen (Aleve). Avoid spicy foods. Other diet: no caffeine. Warnings: Further evaluation is necessary. GENERAL WARNINGS: Return or contact your physician immediately if your condition worsens or changes unexpectedly, if not improving as expected, or if other problems arise. Your Current Medications: STOP TAKING THE FOLLOWING MEDICATIONS: NexIUM Oral. Prescription Medications: Zofran (orally disintegrating tablets) 4 mg: take 1 orally every 6 hours as needed for nausea. Dispense five (5). No refill. Carafate 1 gm tablets: take 1 orally four times daily (1 hour before meals and at bedtime). Dispense sixty (60). No refills. Substitution is permissible. Prilosec 40 mg capsules: take 1 capsule orally every day for 10 days. Dispense ten (10). No refill. Oxycodone/APAP 5 mg/325 mg: take 1-2 tablets orally every 6 hours as needed for pain. Dispense ten (10). No refill. Follow-up: Follow up with a production control expert in one week as scheduled. Understanding of the discharge instructions verbalized by patient and parent. Follow-up with: [facility], , , [address], , [place], [id number] Follow up Tuesday in two days. Call for an appointment. ADDITIONAL INFORMATION GERD (Adult) The esophagus is a tube that carries food from the mouth to the stomach. A valve at the lower end of the esophagus prevents stomach acid from flowing upward. If this valve does not work properly, acid from the stomach enters the esophagus. If this occurs over and over, the acid will injure the lining of the esophagus. This condition is called GERD (gastroesophageal reflux disease) or acid reflux. When stomach acid flows upward into the esophagus, it causes burning, pressure or sharp pain in the upper abdomen or mid to lower chest. The pain can spread to the neck, back, or shoulder, similar to heart pain (angina). There may be belching, an acid taste in the back of the throat, chronic cough, or sore throat or hoarseness. GERD symptoms often occur during the day after a big meal, but it can also occur at night when lying down. Smoking,as well as drinking alcohol, increases the risk of GERD. GERD is a chronic condition. Once it begins, it is often lifelong. Treatment includes changes in eating habits and the use of acid gordon medications to decrease the amount of acid in the stomach. Symptoms often improve with treatment, but if treatment is stopped, the symptoms usually return after a few months. So most persons with GERD will need to continue treatment. Home Care: Take the prescribed acid gordon medication for the full course of treatment even if you begin to feel better sooner. This medication can take up to several days to fully control your symptoms. If you cant afford the prescribed medication, you can try [id number] acid blockers, such as Pepcid AC, Tagamet, Zantac, or Aciphex. If these do not relieve your symptoms, a stronger acid-gordon can be tried, such as Prilosec OTC. You can use antacids, such as Tums, Rolaids, Mylanta, or Maalox, for pain. This will be useful the first few days after starting acid blockers when the blockers havent started working yet. Follow the directions on the label. Liquid antacids may work better than tablets. Note that antacids can interfere with absorption of certain medications. Specifically, do not take Tagamet (cimetidine), Zantac (ranitidine), or Carafate (sucralfate) within 1 hour of taking an antacid. Talk with your pharmacist if you have any questions. Limit or avoid fatty, fried, and spicy foods, as well as coffee, chocolate, mint, and foods with high acid content such as tomatoes and citrus fruit and juices (orange, grapefruit, lemon). Avoid alcohol and smoking. Dont eat large meals, especially at night. Frequent, smaller meals are best. Do not lie down right after eating. And dont eat anything 3 hours before going to bed. If you are overweight, losing weight will reduce symptoms. Women should not wear corsets or girdles because this increases pressure on the stomach and worsens reflux. If your symptoms occur during sleep, use a foam wedge to elevate your upper body (not just your head.) Or, place 4" blocks under the head of your bed. Follow Up with your doctor or as advised by our staff. Further testing may be needed. If you do not begin to improve over the next 4 days, contact your doctor. If you had an x-ray, CT scan, or ECG (electrocardiogram), it will be reviewed by a specialist. Youll be notified of any new findings that affect your care. Get Prompt Medical Attention if any of the following occur: Stomach pain gets worse or moves to the lower right abdomen (appendix area) Chest pain appears or gets worse, or spreads to the back, neck, shoulder, or arm Frequent vomiting (cant keep down liquids) Blood in the stool or vomit (red or black in color) Feeling weak or dizzy, fainting, or trouble breathing Fever of 100.4F (38C) or higher, or as directed by your healthcare provider Clear Liquid Diet Clear liquids are any liquid that you can see through as well as those that are very easy to digest. This is used while the body is recovering from irritation or infection of the stomach or intestinal tract. It may also be used before special procedures or surgery. This diet is to be used no more than three days. You may include the following items. Adults Adults should drink a total of 23 quarts of liquid per day. It may be easier to drink small frequent servings rather than a few large ones. Liquids can include: Fruit juices.Strained orange juice or lemonade (no pulp), apple, grape and cranberry juice, clear fruit drinks, sports drinks Beverages.Sport drinks, sodas, mineral water (plain or flavored), tea, black coffee, liquid gelatin (add twice the recommended amount of water) Soups.Clear broth, consomm, bouillon Desserts.Plain gelatin, popsicles, fruit juice bars Children Over 2 years old The following liquids are acceptable for children over age 2: Fruit juices.Strained orange juice or lemonade (no pulp), apple, grape and cranberry juice, clear fruit drinks Beverages. Sports drinks, sodas, mineral water (plain or flavored), tea, liquid gelatin (add twice the recommended amount of water) Soups. Clear broth, consomm, bouillon Desserts. Plain gelatin, popsicles, fruit juice bars Children under 2 years old Oral rehydration fluids such are available at drug stores and most grocery stores without a prescription. Lincoln Diet A bland diet is used for patients with an upset stomach. It consists of foods that are mild and easy to digest. It is better to eat small frequent meals rather than three large meals a day. BEVERAGES OK: Fruit juices, non-caffeinated teas and coffee, non-carbonated schwartz AVOID: Carbonated beverage, caffeinated tea and coffee, all alcoholic beverages BREAD OK: Refined white, wheat or rye bread, ra or soda crackers, Gracie toast, plain rolls, bagels AVOID: Whole-grain bread CEREAL OK: Refined cereals: cooked or ready to eat AVOID: Whole grain cereals and granola, or those containing bran, seeds or nuts DESSERTS OK: Peanut butter and all others except those to "avoid" AVOID: Chocolate, cocoa, coconut, popcorn, nuts, seeds, jam, marmalade FRUITS OK: Canned, cooked, frozen or fresh fruits without seeds or tough skin AVOID: Olives, skin and seeds of fruit MEATS OK: All fresh or preserved meat, fish and fowl AVOID: Any that are prepared with those spices to "avoid" CHEESE & EGGS OK: Eggs, cottage cheese, cream cheese, other cheeses AVOID: All cheeses made with those spices to "avoid" POTATOES & PASTA OK: Potato, rice, macaroni, noodles, spaghetti AVOID: None SOUPS OK: All soups without heavy seasoning AVOID: Soups made with those spices to "avoid" VEGETABLES OK: Canned, cooked, fresh or frozen mildly flavored vegetables without seeds, skins or coarse fiber AVOID: Vegetables prepared with those spices to "avoid"; skin and seeds of vegetables and those with coarse fiber SPICES OK: Salt, lemon and galena juice, vinegar, all extracts, risa, cinnamon, thyme, mace, allspice, paprika AVOID: [place] powder, cloves, pepper, seed spices, garlic, gravy pickles, highly seasoned salad dressings Ondansetron Oral disintegrating tablet What is this medicine? ONDANSETRON (on ADORE se misha) is used to treat nausea and vomiting caused by chemotherapy. It is also used to prevent or treat nausea and vomiting after surgery. How should I use this medicine? These tablets are made to dissolve in the mouth. Do not try to push the tablet through the foil backing. With dry hands, peel away the foil backing and gently remove the tablet. Place the tablet in the mouth and allow it to dissolve, then swallow. While you may take these tablets with water, it is not necessary to do so. Talk to your drainage inspector regarding the use of this medicine in children. Special care may be needed. What side effects may I notice from receiving this medicine? Side effects that you should report to your doctor or health home care assistant as soon as possible: allergic reactions like skin rash, itching or hives, swelling of the face, lips, or tongue breathing problems dizziness fast or irregular heartbeat feeling faint or lightheaded, falls fever and chills swelling of the hands and feet tightness in the chest Side effects that usually do not require medical attention (report to your doctor or health home care assistant if they continue or are bothersome): constipation or diarrhea headache What may interact with this medicine? Do not take this medicine with any of the following medications: -apomorphine -cisapride -dofetilide -dronedarone -pimozide -thioridazine -ziprasidone This medicine may also interact with the following medications: -carbamazepine -phenytoin -rifampicin -tramadol -other medicines that prolong the QT interval (cause an abnormal heart rhythm) What if I miss a dose? If you miss a dose, take it as soon as you can. If it is almost time for your next dose, take only that dose. Do not take double or extra doses. Where should I keep my medicine? Keep out of the reach of children. Store between 2 and 30 degrees C (36 and 86 degrees F). Throw away any unused medicine after the expiration date. What should I tell my health care provider before I take this medicine? They need to know if you have any of these conditions: heart disease history of irregular heartbeat liver disease low levels of magnesium or potassium in the blood an unusual or allergic reaction to ondansetron, granisetron, other medicines, foods, dyes, or preservatives or trying to get breast-feeding What should I watch for while using this medicine? Check with your doctor or health home care assistant as soon as you can if you have any sign of an allergic reaction. Omeprazole Magnesium Gastro-resistant tablet What is this medicine? OMEPRAZOLE (oh ME pray zol) prevents the production of acid in the stomach. It is used to treat the symptoms of heartburn. You can buy this medicine without a prescription. This product is not for long-term use, unless otherwise directed by your doctor or health home care assistant. How should I use this medicine? Take this medicine by mouth. Follow the directions on the product label. If you are taking this medicine without a prescription, take one tablet every day. Do not use for longer than 14 days or repeat a course of treatment more often than every 4 months unless directed by a doctor or healthcare professional. Take your dose at regular intervals every 24 hours. Swallow the tablet whole with a drink of water. Do not crush, break or chew. This medicine works best if taken on an empty stomach 30 minutes before breakfast. If you are using this medicine with the prescription of your doctor or healthcare professional, follow the directions you were given. Do not take your medicine more often than directed. Talk to your drainage inspector regarding the use of this medicine in children. Special care may be needed. What side effects may I notice from receiving this medicine? Side effects that you should report to your doctor or health home care assistant as soon as possible: allergic reactions like skin rash, itching or hives, swelling of the face, lips, or tongue bone, muscle or joint pain breathing problems chest pain or chest tightness dark yellow or brown urine diarrhea dizziness fast, irregular heartbeat feeling faint or lightheaded fever or sore throat muscle spasm palpitations redness, blistering, peeling or loosening of the skin, including inside the mouth seizures tremors unusual bleeding or bruising unusually weak or tired yellowing of the eyes or skin Side effects that usually do not require medical attention (Report these to your doctor or health home care assistant if they continue or are bothersome.): constipation dry mouth headache loose stools nausea What may interact with this medicine? Do not take this medicine with any of the following medications: atazanavir clopidogrel nelfinavir This medicine may also interact with the following medications: ampicillin certain medicines for anxiety or sleep certain medicines that treat or prevent blood clots like warfarin cyclosporine diazepam digoxin disulfiram iron salts phenytoin prescription medicine for fungal or yeast infection like itraconazole, ketoconazole, voriconazole saquinavir tacrolimus What if I miss a dose? If you miss a dose, take it as soon as you can. If it is almost time for your next dose, take only that dose. Do not take double or extra doses. Where should I keep my medicine? Keep out of the reach of children. Store at room temperature between 20 and 25 degrees C (68 and 77 degrees F). Protect from light and moisture. Throw away any unused medicine after the expiration date. What should I tell my health care provider before I take this medicine? They need to know if you have any of these conditions: black or bloody stools chest pain difficulty swallowing have had heartburn for over 3 months have heartburn with dizziness, lightheadedness or sweating liver disease stomach pain unexplained weight loss vomiting with blood wheezing an unusual or allergic reaction to omeprazole, other medicines, foods, dyes, or preservatives or trying to get breast-feeding What should I watch for while using this medicine? It can take several days before your heartburn gets better. Check with your doctor or health home care assistant if your condition does not start to get better, or if it gets worse. Do not treat diarrhea with over the counter products. Contact your doctor if you have diarrhea that lasts more than 2 days or if it is severe and watery. Do not treat yourself for heartburn with this medicine for more than 14 days in a row. You should only use this medicine for a 2-week treatment period once every 4 months. If your symptoms return shortly after your therapy is complete, or within the 4 month time frame, call your doctor or health home care assistant. Oxycodone Hydrochloride, Acetaminophen Oral tablet What is this medicine? ACETAMINOPHEN; OXYCODONE (a set a RAZA teagan fen; ox i KOE done) is a pain reliever. It is used to treat mild to moderate pain. How should I use this medicine? Take this medicine by mouth with a full glass of water. Follow the directions on the prescription label. Take your medicine at regular intervals. Do not take your medicine more often than directed. Talk to your drainage inspector regarding the use of this medicine in children. Special care may be needed. Patients over 65 years old may have a stronger reaction and need a smaller dose. What side effects may I notice from receiving this medicine? Side effects that you should report to your doctor or health home care assistant as soon as possible: allergic reactions like skin rash, itching or hives, swelling of the face, lips, or tongue breathing difficulties, wheezing confusion light headedness or fainting spells severe stomach pain yellowing of the skin or the whites of the eyes Side effects that usually do not require medical attention (report to your doctor or health home care assistant if they continue or are bothersome): dizziness drowsiness nausea vomiting What may interact with this medicine? alcohol antihistamines barbiturates like amobarbital, butalbital, butabarbital, methohexital, pentobarbital, phenobarbital, thiopental, and secobarbital benztropine drugs for bladder problems like solifenacin, trospium, oxybutynin, tolterodine, hyoscyamine, and methscopolamine drugs for breathing problems like ipratropium and tiotropium drugs for certain stomach or intestine problems like propantheline, homatropine methylbromide, glycopyrrolate, atropine, belladonna, and dicyclomine general anesthetics like etomidate, ketamine, nitrous oxide, propofol, desflurane, enflurane, halothane, isoflurane, and sevoflurane medicines for depression, anxiety, or psychotic disturbances medicines for sleep muscle relaxants naltrexone narcotic medicines (opiates) for pain phenothiazines like perphenazine, thioridazine, chlorpromazine, mesoridazine, fluphenazine, prochlorperazine, promazine, and trifluoperazine scopolamine tramadol trihexyphenidyl What if I miss a dose? If you miss a dose, take it as soon as you can. If it is almost time for your next dose, take only that dose. Do not take double or extra doses. Where should I keep my medicine? Keep out of the reach of children. This medicine can be abused. Keep your medicine in a safe place to protect it from theft. Do not share this medicine with anyone. Selling or giving away this medicine is dangerous and against the law. Store at room temperature between 20 and 25 degrees C (68 and 77 degrees F). Keep container tightly closed. Protect from light. This medicine may cause accidental overdose and if it is taken by other adults, children, or pets. Flush any unused medicine down the toilet to reduce the chance of harm. Do not use the medicine after the expiration date. What should I tell my health care provider before I take this medicine? They need to know if you have any of these conditions: brain tumor Crohn's disease, inflammatory bowel disease, or ulcerative colitis drink more than 3 alcohol containing drinks per day drug abuse or addiction head injury heart or circulation problems kidney disease or problems going to the bathroom liver disease lung disease, asthma, or breathing problems an unusual or allergic reaction to acetaminophen, oxycodone, other opioid analgesics, other medicines, foods, dyes, or preservatives or trying to get breast-feeding What should I watch for while using this medicine? Tell your doctor or health home care assistant if your pain does not go away, if it gets worse, or if you have new or a different type of pain. You may develop tolerance to the medicine. Tolerance means that you will need a higher dose of the medication for pain relief. Tolerance is normal and is expected if you take this medicine for a long time. Do not suddenly stop taking your medicine because you may develop a severe reaction. Your body becomes used to the medicine. This does NOT mean you are addicted. Addiction is a behavior related to getting and using a drug for a non-medical reason. If you have pain, you have a medical reason to take pain medicine. Your doctor will tell you how much medicine to take. If your doctor wants you to stop the medicine, the dose will be slowly lowered over time to avoid any side effects. You may get drowsy or dizzy. Do not drive, use machinery, or do anything that needs mental alertness until you know how this medicine affects you. Do not stand or sit up quickly, especially if you are an older patient. This reduces the risk of dizzy or fainting spells. Alcohol may interfere with the effect of this medicine. Avoid alcoholic drinks. There are different types of narcotic medicines (opiates) for pain. If you take more than one type at the same time, you may have more side effects. Give your health care provider a list of all medicines you use. Your doctor will tell you how much medicine to take. Do not take more medicine than directed. Call emergency for help if you have problems breathing. The medicine will cause constipation. Try to have a bowel movement at least every 2 to 3 days. If you do not have a bowel movement for 3 days, call your doctor or health home care assistant. Do not take Tylenol (acetaminophen) or medicines that have acetaminophen with this medicine. Too much acetaminophen can be very dangerous. Many nonprescription medicines contain acetaminophen. Always read the labels carefully to avoid taking more acetaminophen. You have been given the following additional information: GERD (Adult) Diet, Clear Liquid Diet, Lincoln (Adult) Ondansetron Oral disintegrating tablet Omeprazole Magnesium Gastro-resistant tablet Oxycodone Hydrochloride, Acetaminophen Oral tablet No strenuous activity. (Electronically signed by Lj Elizabeth MD 12/09/2016 12:51)
--- NOTE | 2016-12-09 12:51 | ED MED RECONCILIATION SUMMARY ---
Patient: MICHAEL LOFTON Medication Reconciliation Report [facility] VisitID: [id number] [address] [place] [address] 21y, M Registration Date/Time: 12/07/2016 Weight: 72.5 kg Height/Length: 66 in. BMI: 25.8 ALLERGIES: No Known Drug Allergy The patient's Home Medications are listed below: STOP TAKING THE FOLLOWING MEDICATIONS: NexIUM Oral The source(s) of the original Home Medication information: patient The following Medications were given to the patient in the Emergency Department: IV NS IV Fluids bolus 0, then 1000 mL/hr, administered: 12/07/2016 9:02:00 PM Morphine [IVP] IVP 4 mg, administered: 12/07/2016 9:02:00 PM Zofran [IVP] IVP 4 mg, administered: 12/07/2016 9:02:00 PM Dilaudid [IVP] IVP 1 mg, administered: 12/07/2016 9:19:00 PM Toradol [IVP] IVP 30 mg, administered: 12/07/2016 10:20:00 PM Ativan [IVP] IVP 1 mg, administered: 12/07/2016 10:21:00 PM GI COCKTAIL WHITE [PO] PO 50 mL, administered: 12/07/2016 11:06:00 PM HALDOL [IVP] IVP 2 mg, administered: 12/08/2016 1:41:00 AM Ativan [IVP] IVP 1 mg, administered: 12/08/2016 1:43:00 AM Carafate [PO] PO 2 gm, administered: 12/08/2016 1:31:00 AM Reglan [IVP] IVP 10 mg, administered: 12/08/2016 1:48:00 AM PROTONIX [IVP] IVP 80 mg, administered: 12/08/2016 1:59:00 AM The following Medications were prescribed to the patient: Zofran (orally disintegrating tablets) 4 mg: take 1 orally every 6 hours as needed for nausea. Dispense five (5). No refill. -- Lj Elizabeth MD Carafate 1 gm tablets: take 1 orally four times daily (1 hour before meals and at bedtime). Dispense sixty (60). No refills. Substitution is permissible. -- Lj Elizabeth MD Prilosec 40 mg capsules: take 1 capsule orally every day for 10 days. Dispense ten (10). No refill. -- Lj Elizabeth MD Oxycodone/APAP 5 mg/325 mg: take 1-2 tablets orally every 6 hours as needed for pain. Dispense ten (10). No refill. -- Lj Elizabeth MD
--- NOTE | 2016-12-09 12:51 | ED MED RECONCILIATION SUMMARY ---
Patient: MICHAEL LOFTON Medication Reconciliation Report [facility] VisitID: [id number] [address] [place] [address] 21y, M Registration Date/Time: 12/07/2016 Weight: 72.5 kg Height/Length: 66 in. BMI: 25.8 ALLERGIES: No Known Drug Allergy The patient's Home Medications are listed below: STOP TAKING THE FOLLOWING MEDICATIONS: NexIUM Oral The source(s) of the original Home Medication information: patient The following Medications were given to the patient in the Emergency Department: IV NS IV Fluids bolus 0, then 1000 mL/hr, administered: 12/07/2016 9:02:00 PM Morphine [IVP] IVP 4 mg, administered: 12/07/2016 9:02:00 PM Zofran [IVP] IVP 4 mg, administered: 12/07/2016 9:02:00 PM Dilaudid [IVP] IVP 1 mg, administered: 12/07/2016 9:19:00 PM Toradol [IVP] IVP 30 mg, administered: 12/07/2016 10:20:00 PM Ativan [IVP] IVP 1 mg, administered: 12/07/2016 10:21:00 PM GI COCKTAIL WHITE [PO] PO 50 mL, administered: 12/07/2016 11:06:00 PM HALDOL [IVP] IVP 2 mg, administered: 12/08/2016 1:41:00 AM Ativan [IVP] IVP 1 mg, administered: 12/08/2016 1:43:00 AM Carafate [PO] PO 2 gm, administered: 12/08/2016 1:31:00 AM Reglan [IVP] IVP 10 mg, administered: 12/08/2016 1:48:00 AM PROTONIX [IVP] IVP 80 mg, administered: 12/08/2016 1:59:00 AM The following Medications were prescribed to the patient: Zofran (orally disintegrating tablets) 4 mg: take 1 orally every 6 hours as needed for nausea. Dispense five (5). No refill. -- Lj Elizabeth MD Carafate 1 gm tablets: take 1 orally four times daily (1 hour before meals and at bedtime). Dispense sixty (60). No refills. Substitution is permissible. -- Lj Elizabeth MD Prilosec 40 mg capsules: take 1 capsule orally every day for 10 days. Dispense ten (10). No refill. -- Lj Elizabeth MD Oxycodone/APAP 5 mg/325 mg: take 1-2 tablets orally every 6 hours as needed for pain. Dispense ten (10). No refill. -- Lj Elizabeth MD
--- NOTE | 2016-12-09 12:51 | ED MAR SUMMARY ---
..... Medication Administration Record [facility] [address] [place] [address] Patient: MICHAEL LOFTON Visit ID: [id number] 21y, M Weight: 72.5 kg Height/Length: 66 in BMI: 25.8 ALLERGIES: No Known Drug Allergy Start 21:02 12/07/2016 Yael Baxter R.N., Stop 21:41 12/07/2016 Mehdi Carlos R.N. Medication Administered: IV NS (SALINE), Dose: IV Fluids over 1 hour(s), Rate: 1000 mL/hr, Dispensed: 1000 mL bag, Site: #1 right AC. Medication Ordered: IV NS with Normal Saline 1 Liter: initial bolus none -, then 1000 mL/hr for X1 (NOW). Given :12/07/2016 Yael Baxter R.N. Medication Administered: MORPHINE [IVP], Dose: 4 mg IVP over 1 minute(s), Site: #1 right AC. Medication Ordered: Morphine IV 4 mg (HIGH ALERT MEDICATION, NOW). Given :12/07/2016 Yael Baxter R.N. Medication Administered: ZOFRAN [IVP] (ONDANSETRON HCL), Dose: 4 mg IVP over 2 minute(s), Site: #1 right AC. Medication Ordered: Zofran IV 4 mg (NOW). Given :12/07/2016 Yael Baxter R.N. Medication Administered: DILAUDID [IVP] (HYDROMORPHONE HCL PF), Dose: 1 mg IVP over 30 second(s), Site: #1 right AC. Medication Ordered: Dilaudid IV 1 mg (NOW). Given 22:12/07/2016 Yael Baxter R.N. Medication Administered: TORADOL [IVP], Dose: 30 mg IVP over 30 second(s), Site: #1 right AC. Medication Ordered: Toradol IV 30 mg (NOW). Given 22:12/07/2016 Yael Baxter R.N. Medication Administered: ATIVAN [IVP] (LORAZEPAM), Dose: 1 mg IVP over 30 second(s), Site: #1 right AC. Medication Ordered: Ativan IV 1 mg (NOW). Given 23:06 12/07/2016 Mehdi Carlos RRebeccaNRebecca Medication Administered: GI COCKTAIL WHITE [PO] (SIMETHICONE), Dose: 50 mL PO. Medication Ordered: GI Cocktail WHITE PO 50 mL (NOW). Given 01:31 12/08/2016 Jade Ahumada R.N. Medication Administered: CARAFATE [PO] (SUCRALFATE), Dose: 2 gm Oral Suspension PO. Medication Ordered: Carafate PO 20 ml (NOW). Given 01:41 12/08/2016 Jade Ahumada R.NRebecca Medication Administered: HALDOL [IVP] (HALOPERIDOL LACTATE), Dose: 2 mg IVP over 3 minute(s), Site: #1 right AC. Medication Ordered: Haldol IV 2 mg (NOW). Given 01:43 12/08/2016 Jade Ahumada R.N. Medication Administered: ATIVAN [IVP] (LORAZEPAM), Dose: 1 mg IVP over 2 minute(s), Site: #1 right AC. Medication Ordered: Ativan IV 1 mg (NOW). Given 01:48 12/08/2016 Jade Ahumada R.N. Medication Administered: REGLAN [IVP] (METOCLOPRAMIDE HCL), Dose: 10 mg IVP over 2 minute(s), Site: #1 right AC. Medication Ordered: Reglan IV 10 mg (NOW). Given 01:59 12/08/2016 Jade Ahumada R.NRebecca Medication Administered: PROTONIX [IVP] (PANTOPRAZOLE SODIUM), Dose: 80 mg IVP over 7 minute(s), Site: #1 right AC. Medication Ordered: Protonix IVP 80mg 80 mg (Mix in NS 20ml over 4min).
--- NOTE | 2016-12-09 12:51 | ED MAR SUMMARY ---
..... Medication Administration Record [facility] [address] [place] [address] Patient: MICHAEL LOFTON Visit ID: [id number] 21y, M Weight: 72.5 kg Height/Length: 66 in BMI: 25.8 ALLERGIES: No Known Drug Allergy Start 21:02 12/07/2016 Yael Baxter R.N., Stop 21:41 12/07/2016 Mehdi Carlos R.N. Medication Administered: IV NS (SALINE), Dose: IV Fluids over 1 hour(s), Rate: 1000 mL/hr, Dispensed: 1000 mL bag, Site: #1 right AC. Medication Ordered: IV NS with Normal Saline 1 Liter: initial bolus none -, then 1000 mL/hr for X1 (NOW). Given :12/07/2016 Yael Baxter R.N. Medication Administered: MORPHINE [IVP], Dose: 4 mg IVP over 1 minute(s), Site: #1 right AC. Medication Ordered: Morphine IV 4 mg (HIGH ALERT MEDICATION, NOW). Given :12/07/2016 Yael Baxter R.N. Medication Administered: ZOFRAN [IVP] (ONDANSETRON HCL), Dose: 4 mg IVP over 2 minute(s), Site: #1 right AC. Medication Ordered: Zofran IV 4 mg (NOW). Given :12/07/2016 Yael Baxter R.N. Medication Administered: DILAUDID [IVP] (HYDROMORPHONE HCL PF), Dose: 1 mg IVP over 30 second(s), Site: #1 right AC. Medication Ordered: Dilaudid IV 1 mg (NOW). Given 22:12/07/2016 Yael Baxter R.N. Medication Administered: TORADOL [IVP], Dose: 30 mg IVP over 30 second(s), Site: #1 right AC. Medication Ordered: Toradol IV 30 mg (NOW). Given 22:12/07/2016 Yael Baxter R.N. Medication Administered: ATIVAN [IVP] (LORAZEPAM), Dose: 1 mg IVP over 30 second(s), Site: #1 right AC. Medication Ordered: Ativan IV 1 mg (NOW). Given 23:06 12/07/2016 Mehdi Carlos RRebeccaNRebecca Medication Administered: GI COCKTAIL WHITE [PO] (SIMETHICONE), Dose: 50 mL PO. Medication Ordered: GI Cocktail WHITE PO 50 mL (NOW). Given 01:31 12/08/2016 Jade Ahumada R.N. Medication Administered: CARAFATE [PO] (SUCRALFATE), Dose: 2 gm Oral Suspension PO. Medication Ordered: Carafate PO 20 ml (NOW). Given 01:41 12/08/2016 Jade Ahumada R.NRebecca Medication Administered: HALDOL [IVP] (HALOPERIDOL LACTATE), Dose: 2 mg IVP over 3 minute(s), Site: #1 right AC. Medication Ordered: Haldol IV 2 mg (NOW). Given 01:43 12/08/2016 Jade Ahumada R.N. Medication Administered: ATIVAN [IVP] (LORAZEPAM), Dose: 1 mg IVP over 2 minute(s), Site: #1 right AC. Medication Ordered: Ativan IV 1 mg (NOW). Given 01:48 12/08/2016 Jade Ahumada R.N. Medication Administered: REGLAN [IVP] (METOCLOPRAMIDE HCL), Dose: 10 mg IVP over 2 minute(s), Site: #1 right AC. Medication Ordered: Reglan IV 10 mg (NOW). Given 01:59 12/08/2016 Jade Ahumada R.NRebecca Medication Administered: PROTONIX [IVP] (PANTOPRAZOLE SODIUM), Dose: 80 mg IVP over 7 minute(s), Site: #1 right AC. Medication Ordered: Protonix IVP 80mg 80 mg (Mix in NS 20ml over 4min).
== END 2016-12-08 06:09 | disposition home or self-care (01) ==
LOC: ED SRH 20:04
DX: K22.4 Dyskinesia of esophagus (principal); K21.0 Gastro-esophageal reflux disease with esophagitis; F17.210 Nicotine dependence, cigarettes, uncomplicated
CPT/HCPCS: 90004; 90100; 90939; 91585; 92235; 92530; 93004; 94060; 95059